=== PATIENT | female | born 1980 | race Two or more races ===

== ENCOUNTER 2022-04-29 17:54 | Emergency (ER) | payer OTHER ==
[~2022-04-29] VITALS: Ht 154.9 cm; Wt 62.6 kg
[2022-04-29] MEDS ORDERED: ADULT LOW DOSE81 M1 PO (18:13)
[2022-04-29] MEDS ORDERED: PRASUGREL HCL10 MG PO (18:14)
[2022-04-29] MEDS ORDERED: MONTELUKAST SODI4 M1 PO (18:14)
[2022-04-29] MEDS ORDERED: TOPROL XL25 M1 PO (18:14)
[2022-04-29] MEDS ORDERED: CRESTOR20 MG PO (18:14)
[2022-04-29] MEDS ORDERED: OZEMPIC0.25 MG/0. SQ (18:15)
[2022-04-29] MEDS ORDERED: SYNJARDY XR 101 EACH PO (18:15)
== END 2022-04-29 21:28 | disposition home or self-care (01) ==
LOC: ER 17:54
DX: S62.652A Nondisplaced fracture of middle phalanx of right middle finger, initial encounter for closed fracture (principal); X58.XXXA Exposure to other specified factors, initial encounter; Y93.89 Activity, other specified; Y92.9 Unspecified place or not applicable; Y99.9 Unspecified external cause status